=== PATIENT | male | born 1965 | race Caucasian/White ===

== ENCOUNTER 2017-05-17 06:59 | Inpatient (IN) | payer BC, OTHER ==
[2017-05-13 12:32] LABS: APPEARANCE,URINE CLEAR; BILIRUBIN,URINE NEGATIVE (NEGATIVE); GLUCOSE, URINE NEGATIVE (NEGATIVE); KETONES,URINE NEGATIVE (NEGATIVE); LEUKOCYTE ESTERASE,URINE NEGATIVE (NEGATIVE); NITRITE,URINE NEGATIVE (NEGATIVE); PROTEIN,URINE NEGATIVE (NEGATIVE); URINE SPECIFIC GRAVITY 1.002; UROBILINOGEN,URINE NEGATIVE mg/dL (<2.0)
[2017-05-13 12:38] LABS: HEMATOCRIT 38.4 % (37.9-51.0); HEMOGLOBIN 13.1 g/dL (13.5-17.0); HGB HCT DIFFERENCE 0.9; MEAN CORPUSCULAR HGB CONC 34.2 g/dL (32.0-36.0); MEAN CORPUSCULAR VOLUME 79 fl (80-97); RED BLOOD COUNT 4.86 10^6/uL (4.35-5.55); RED CELL DISTRIBUTION WIDTH 14.9 % (11.5-14.0); WHITE BLOOD COUNT 6.7 10^3/uL (4.0-10.5)
[2017-05-13 13:05] LABS: ANION GAP 12 (5-19); BLOOD UREA NITROGEN 9 mg/dL (7-20); CALCIUM 9.8 mg/dL (8.4-10.2); CARBON DIOXIDE 27 mmol/L (22-30); CHLORIDE 99 mmol/L (98-107); CREATININE RESULT 0.78 mg/dL (0.52-1.25); GLUCOSE 92 mg/dL (75-110); POTASSIUM 4.6 mmol/L (3.6-5.0); SODIUM 138.2 mmol/L (137-145)
--- NOTE | 2017-05-13 13:35 | RADIOLOGY REPORT (SQ) ---
EXAM DESCRIPTION: CHEST PA/LATERAL COMPLETED DATE/TIME: 05/13/2017 11:58 am REASON FOR STUDY: PRE OP COMPARISON: None. EXAM PARAMETERS: NUMBER OF VIEWS: two views TECHNIQUE: Digital Frontal and Lateral radiographic views of the chest acquired. RADIATION DOSE: NA LIMITATIONS: none FINDINGS: LUNGS AND PLEURA: No opacities, masses or pneumothorax. No pleural effusion. MEDIASTINUM AND HILAR STRUCTURES: No masses or contour abnormalities. HEART AND VASCULAR STRUCTURES: Heart normal size. No evidence for failure. BONES: No acute findings. HARDWARE: None in the chest. OTHER: No other significant finding. IMPRESSION: NO SIGNIFICANT RADIOGRAPHIC FINDING IN THE CHEST. TECHNICAL DOCUMENTATION: JOB ID: [id number] [employer]- All Rights Reserved
--- NOTE | 2017-05-13 21:25 | EKG REPORT ---
SEVERITY:- NORMAL ECG - SINUS RHYTHM : Confirmed by: Raina Myers 13-May-2017 21:24:10
[~2017-05-17 06:59] MED LIST: BUPIVACAINE INJ/PF LIPOSOME/PF 266 MG/20 ML SDV ONE; IBUPROFEN 800 MG/NS 250 ML IV PRN; LACTATED RINGERS 1000 ML IV PRN; LANSOPRAZOLE 15 MG TAB.RAP.DR PO PRN; OXYCODONE HCL SR 10 MG TABLET PO PRN; THROMBIN (BOVINE) 5000 UNIT EPITAXIS KIT ONE; THROMBIN (BOVINE) TOPICAL 20000 UNIT VIAL ONE; VANCOMYCIN HCL 1,000 MG in DEXTROSE 5%-WATER 250 ML IV PRN
[2017-05-17] MEDS ORDERED: THROMBIN (BOVINE) 5000 UNIT EPITAXIS KIT ONE (07:24)
[2017-05-17] MEDS ORDERED: BUPIVACAINE INJ/PF LIPOSOME/PF 266 MG/20 ML SDV ONE (07:25)
[2017-05-17] MEDS ORDERED: FENTANYL CITRATE INJ/PF 250 MCG/5 ML AMPULE ONE (07:28)
[2017-05-17] MEDS ORDERED: MIDAZOLAM 2 MG/2 ML INJ ONE (07:28)
[2017-05-17] MEDS ORDERED: LIDOCAINE 2% INJ-PF (20 MG/ML) 10 ML AMPUL ONE (07:28)
[2017-05-17] MEDS ORDERED: DEXMEDETOMIDINE INJ 80 MCG/20 ML VIAL IV ONE (07:29)
[2017-05-17] MEDS ORDERED: TRANEXAMIC ACID INJ/PF 1,000 MG/10 ML SDV IV ONE ×3 (07:29→11:30)
[2017-05-17] MEDS ORDERED: EPHEDRINE SULFATE INJ 50 MG/1 ML AMPULE ONE (07:29)
[2017-05-17] MEDS ORDERED: ONDANSETRON HCL INJ/PF 4 MG/2 ML SDV ONE (07:29)
[2017-05-17] MEDS ORDERED: PROPOFOL INJ 200 MG/20 ML VIAL IV ONE (07:29)
[2017-05-17] MEDS ORDERED: CEFAZOLIN INJ 1 GM VIAL ONE (08:19)
[2017-05-17] MEDS ORDERED: PROMETHAZINE HCL INJ 25 MG/1 ML VIAL IV PRN ×2 (09:15)
[2017-05-17] MEDS ORDERED: OXYCODONE-ACETAMINOPHEN 5-325 MG TABLET PO PRN ×2 (09:15)
[2017-05-17] MEDS: THROMBIN (BOVINE) TOPICAL 20000 UNIT VIAL ONE ×2 (09:15→09:41)
[2017-05-17] MEDS ORDERED: DIPHENHYDRAMINE HCL 50 MG/ML VIAL IV PRN ×2 (09:15→10:45)
[2017-05-17] MEDS ORDERED: MEPERIDINE HCL/PF INJ 25 MG/1 ML DISP.SYRIN IV PRN (09:15)
[2017-05-17] MEDS ORDERED: MORPHINE SULFATE 10 MG/ML INJ IV PRN ×5 (09:15→16:54)
[2017-05-17] MEDS ORDERED: ONDANSETRON HCL INJ/PF 4 MG/2 ML SDV IV PRN ×2 (09:15→10:45)
[2017-05-17] MEDS ORDERED: FENTANYL CITRATE INJ/PF 100 MCG/2 ML AMPUL IV PRN ×3 (09:15)
--- NOTE | 2017-05-17 10:44 | Operative Report ---
Operative Report DATE OF SURGERY: 05/17/17 PREOPERATIVE DIAGNOSIS: Bilateral knee osteoarthritis OPERATION: Bilateral knee arthroplasty SURGEON: KEYANA DIAZ [employer] REPRESENTATIVE: RONALDO CHOI ANESTHESIA: Spinal TISSUE REMOVED OR ALTERED: Bone 2 to pathology ESTIMATED BLOOD LOSS: 100 PROCEDURE: Implants used: Femur: Right side Sindi triathlon #7 CR femur, left side #8 Tibia: Right side 6, left side 7 Tibial liner: 9 mm CS insert Patella: 38 mm oval patella Procedure with the patient supine on the operating table the bilateral limbs are prepped and draped in a sterile fashion. The right lower extremity was elevated for exsanguination and the tourniquet inflated to 280 torr. A standard midline median parapatellar approach the knee is taken. Access is gained to the femoral canal through the intercondylar notch. Intramedullary alignment instrumentation used to resect 10 mm of distal femur in 5 of valgus. Sizing guide indicated a size 7 femur. Appropriate cutting jig is then used to fashion anterior posterior and chamfer cuts. Is a slight notching of the anterior femoral cortex. A trial reduction femurs performed and this is judged to be adequate. Attention was next turned to the tibia. Using an extra medullary alignment system 9 millimeters was resected off the lateral tibial plateau. This is sized to a size 6 tibia. A trial reduction was now performed with a 7 femur and a 6 tibia using a 9 millimeters spacer. It is full extension and central patellofemoral tracking. The articular surface the patella was next resected using an oscillating saw. All trial implants were removed. Polymethylmethacrylate is mixed and used to cement the above implants in place. On adequate curing the cement excess cement was removed the tourniquet was deflated hemostasis obtained the wound is then closed in layers using interrupted Vicryl followed by liseth. At this point an identical procedure was performed on the left lower extremity. However the implants were upsized to a 7 tibia, 8 femur, 38 mm oval patella to avoid notching of the left lower extremity. The wound was closed in identical fashion. A sterile compressive dressing was applied and the patient returned to recovery room in satisfactory condition.
[2017-05-17] MEDS ORDERED: RINGERS SOLUTION,LACTATED 1,000 ML IV PRN (10:45)
[2017-05-17] MEDS ORDERED: ACETAMINOPHEN 325 MG TABLET PO PRN (10:45)
[2017-05-17] MEDS ORDERED: BUTALBITAL PO PRN (10:45)
[2017-05-17] MEDS ORDERED: CAFFEINE PO PRN (10:45)
[2017-05-17] MEDS ORDERED: DIAZEPAM 5 MG TABLET PO PRN (10:45)
[2017-05-17] MEDS ORDERED: [UNRECOGNIZED DRUG - OTHER] PO PRN (10:45)
[2017-05-17] MEDS ORDERED: [UNRECOGNIZED DRUG - OTHER] PO PRN (10:45)
[2017-05-17] MEDS ORDERED: ASPIRIN PO PRN (10:45)
[2017-05-17] MEDS ORDERED: ZOLPIDEM TARTRATE 5 MG TABLET PO PRN (10:45)
[2017-05-17] MEDS ORDERED: MAG HYDROX/AL HYDROX/SIMETH SUSP 30 ML UDCUP PO PRN (10:45)
[2017-05-17] MEDS ORDERED: ONDANSETRON 4 MG TAB.RAPDIS PO PRN (10:45)
--- NOTE | 2017-05-17 12:03 | RADIOLOGY REPORT (SQ) ---
EXAM DESCRIPTION: KNEE LEFT 2 VIEWS COMPLETED DATE/TIME: 05/17/2017 11:50 am REASON FOR STUDY: Post OP -Long Cassette in PACU M17.0 BILATERAL PRIMARY OSTEOARTHRITIS OF KNEE COMPARISON: None. NUMBER OF VIEWS: Two views left knee. TECHNIQUE: Digital radiographic images of the left knee post-procedure. LIMITATIONS: None. FINDINGS: BONES: No worrisome or unexpected findings post-procedure. DEVICE: Left total knee replacement with patellar resurfacing. Good alignment SOFT TISSUES: No worrisome findings. Expected postoperative soft tissue changes. IMPRESSION: SATISFACTORY POSTOPERATIVE LEFT KNEE. TECHNICAL DOCUMENTATION: JOB ID: [id number] [employer]- All Rights Reserved
--- NOTE | 2017-05-17 12:05 | RADIOLOGY REPORT (SQ) ---
EXAM DESCRIPTION: KNEE RIGHT 2 VIEWS COMPLETED DATE/TIME: 05/17/2017 11:50 am REASON FOR STUDY: Post OP -Long Cassette in PACU M17.0 BILATERAL PRIMARY OSTEOARTHRITIS OF KNEE COMPARISON: None. NUMBER OF VIEWS: Two views TECHNIQUE: Digital radiographic images of the right knee post-procedure. LIMITATIONS: None. FINDINGS: BONES: No worrisome or unexpected findings post-procedure. DEVICE: Right total knee replacement with patellar resurfacing, good alignment. A SOFT TISSUES: No worrisome findings. Expected postoperative soft tissue changes. IMPRESSION: SATISFACTORY POSTOPERATIVE RIGHT KNEE. TECHNICAL DOCUMENTATION: JOB ID: [id number] [employer]- All Rights Reserved
[2017-05-17] MEDS ORDERED: GLYCOPYRROLATE INJ 0.4 MG/2 ML VIAL ONE (12:50)
[2017-05-17] MEDS: OXYCODONE HCL IR 5 MG TABLET PO PRN ×2 (13:47→22:28)
[2017-05-17] MEDS ORDERED: (PENDING PHARMACY ID) (Butalb/Acetaminophen/Caffeine [Butalb-Acetamin-Caff 50-300-40] 1 CA PO PRN (14:14)
[2017-05-17] MEDS ORDERED: BUTALB/ACETAMINOPHEN/CAFFEINE 1 TAB EACH PO PRN (14:43)
[2017-05-17] MEDS: MORPHINE SULFATE 10 MG/ML INJ IM PRN ×2 (15:42→23:23)
[2017-05-17] MEDS: IBUPROFEN 800 MG in NORMAL SALINE 250 ML IV SCH (17:32)
[2017-05-17] MEDS: SENNOSIDES/DOCUSATE 8.6-50 MG 1 EACH TABLET PO SCH (17:33)
[2017-05-17] MEDS: RIVAROXABAN 10 MG TABLET PO SCH (21:29)
[2017-05-17] MEDS: ATORVASTATIN CALCIUM 20 MG TABLET PO SCH (21:30)
[2017-05-17] MEDS: DIAZEPAM 5 MG TABLET PO PRN (21:34)
[2017-05-17] MEDS: CYCLOBENZAPRINE HCL 10 MG TABLET PO PRN (21:34)
[2017-05-17] MEDS ORDERED: OXYCODONE HCL SR 10 MG TABLET PO SCH (22:00)
[2017-05-17] MEDS ORDERED: VANCOMYCIN HCL 1,000 MG in DEXTROSE 5%-WATER 250 ML IV ONE (23:00)
[2017-05-18] MEDS: IBUPROFEN 800 MG in NORMAL SALINE 250 ML IV SCH ×4 (01:03→23:29)
[2017-05-18] MEDS: LANSOPRAZOLE 30 MG TAB.RAP.DR PO SCH (05:11)
[2017-05-18] MEDS: OXYCODONE HCL IR 5 MG TABLET PO PRN ×2 (05:11→17:16)
[2017-05-18] MEDS: MORPHINE SULFATE 10 MG/ML INJ IM PRN ×4 (05:16→09:07)
[2017-05-18 05:27] LABS: HEMATOCRIT 32.3 % (37.9-51.0); HEMOGLOBIN 11.1 g/dL (13.5-17.0); MEAN CORPUSCULAR HEMOGLOBIN 27.1 pg (27.0-33.4); MEAN CORPUSCULAR HGB CONC 34.4 g/dL (32.0-36.0); MEAN CORPUSCULAR VOLUME 79 fl (80-97); RED CELL DISTRIBUTION WIDTH 14.7 % (11.5-14.0); WHITE BLOOD COUNT 10.6 10^3/uL (4.0-10.5)
[2017-05-18 05:49] LABS: ANION GAP 10 (5-19); BLOOD UREA NITROGEN 7 mg/dL (7-20); CALCIUM 8.7 mg/dL (8.4-10.2); CARBON DIOXIDE 27 mmol/L (22-30); CHLORIDE 96 mmol/L (98-107); CREATININE RESULT 0.78 mg/dL (0.52-1.25); GLUCOSE 147 mg/dL (75-110); POTASSIUM 4.7 mmol/L (3.6-5.0)
--- NOTE | 2017-05-18 07:07 | PDOC PROGRESS REPORT ---
Subjective Progress Note for:: 05/18/17 Subjective:: Patient complains of pain in right greater than left knees Physical Exam Vital Signs: Temp Pulse Resp BP Pulse Ox 36.8 C 112 H 16 141/74 H 98 05/18/17 03:28 05/18/17 03:28 05/18/17 03:28 05/18/17 03:28 05/18/17 03:28 Intake & Output 05/17/17 05/18/17 05/19/17 06:59 06:59 06:59 Intake Total 15666 Output Total 5850 Balance 4927 Weight 115.2 kg General appearance: PRESENT: mild distress Head exam: PRESENT: normocephalic Eye exam: PRESENT: EOMI Respiratory exam: PRESENT: unlabored Cardiovascular exam: PRESENT: RRR Pulses: PRESENT: +1 pedal pulses bilateral Vascular exam: PRESENT: normal capillary refill GI/Abdominal exam: PRESENT: soft Rectal exam: PRESENT: deferred Extremities exam: PRESENT: other - Bilateral lower extremity dressings clean dry and intact. There is a mild flexion contracture present on the right. The patient is instructed to use a pillow underneath the right heel and allow gravity to extend the knee. Neurological exam: PRESENT: alert, awake, oriented to person, oriented to place , oriented to time, oriented to situation. ABSENT: motor sensory deficit Psychiatric exam: PRESENT: appropriate affect, normal mood. ABSENT: homicidal ideation, suicidal ideation Skin exam: PRESENT: dry, intact, warm. ABSENT: cyanosis, rash Results Laboratory Results: 05/18/17 05:06 05/18/17 05:06 05/18/17 05/18/17 05:06 05:06 WBC 10.6 H RBC 4.10 L Hgb 11.1 L Hct 32.3 L MCV 79 L MCH 27.1 MCHC 34.4 RDW 14.7 H Plt Count 251 Sodium 133.0 L Potassium 4.7 Chloride 96 L Carbon Dioxide 27 Anion Gap 10 BUN 7 Creatinine 0.78 Est GFR ( Amer) > 60 Est GFR (Non-Af Amer) > 60 Glucose 147 H Calcium 8.7 Impressions: Chest X-Ray 05/13/17 11:36 IMPRESSION: NO SIGNIFICANT RADIOGRAPHIC FINDING IN THE CHEST. Knee X-Ray 05/17/17 10:46 IMPRESSION: SATISFACTORY POSTOPERATIVE RIGHT KNEE. Status: Imported from PACS Assessment & Plan - Diagnosis (1) Degenerative arthritis of knee, bilateral Is this a current diagnosis for this admission?: Yes Plan: 52-year-old white male postop day 1 status post bilateral simultaneous knee arthroplasty. Overall he is doing quite well he ambulated 100 feet with physical therapy on the day of surgery. Plan for dressing change tomorrow with discharge home with home health nursing, home health physical therapy, wheeled walker, bedside commode. - Time Time Spent with patient: 15-24 minutes Anticipated discharge: Home with Homehealth Within: within 24 hours
[2017-05-18] MEDS: SENNOSIDES/DOCUSATE 8.6-50 MG 1 EACH TABLET PO SCH ×2 (09:08→17:03)
[2017-05-18] MEDS ORDERED: LISINOPRIL 5 MG TABLET PO SCH (10:00)
[2017-05-18] MEDS ORDERED: (PENDING PHARMACY ID) (Lisinopril [Prinivil 2.5 Mg Tablet] 2.5 MG) PO SCH (10:00)
[2017-05-18] MEDS ORDERED: CHOLECALCIFEROL (D3) 1,000 UNIT TABLET PO SCH (10:00)
[2017-05-18] MEDS ORDERED: METOPROLOL SUCCINATE 25 MG TAB.SR.24H PO SCH (10:00)
[2017-05-18] MEDS ORDERED: PRENATAL VITAMIN W-O CA NO5/FE FUMARATE/FA CAPSULE PO SCH (10:00)
[2017-05-18] MEDS ORDERED: (PENDING PHARMACY ID) (Cholecalciferol (Vitamin D3) [Vitamin D3 2000 Unit Tablet] 2,000 UN PO SCH (10:00)
[2017-05-18] MEDS: OXYCODONE HCL SR 40 MG TABLET PO SCH ×2 (10:11→21:19)
[2017-05-18] MEDS: ATORVASTATIN CALCIUM 20 MG TABLET PO SCH (21:18)
[2017-05-18] MEDS: RIVAROXABAN 10 MG TABLET PO SCH (21:19)
[2017-05-18] MEDS: DIAZEPAM 5 MG TABLET PO PRN (21:25)
[2017-05-18] MEDS: CYCLOBENZAPRINE HCL 10 MG TABLET PO PRN (21:25)
[2017-05-19] MEDS: OXYCODONE HCL IR 5 MG TABLET PO PRN ×2 (00:34→06:26)
[2017-05-19 06:25] LABS: HEMATOCRIT 28.4 % (37.9-51.0); HEMOGLOBIN 9.9 g/dL (13.5-17.0); HGB HCT DIFFERENCE 1.3; MEAN CORPUSCULAR HEMOGLOBIN 27.6 pg (27.0-33.4); MEAN CORPUSCULAR HGB CONC 34.8 g/dL (32.0-36.0); MEAN CORPUSCULAR VOLUME 79 fl (80-97); RED BLOOD COUNT 3.58 10^6/uL (4.35-5.55); RED CELL DISTRIBUTION WIDTH 14.6 % (11.5-14.0); WHITE BLOOD COUNT 8.9 10^3/uL (4.0-10.5)
[2017-05-19] MEDS: LANSOPRAZOLE 30 MG TAB.RAP.DR PO SCH (06:26)
--- NOTE | 2017-05-19 07:39 | PDOC DISCHARGE SUMMARY ---
General - Admit/Disc Date/PCP Admission Date/Primary Care Provider: 05/17/17 06:59 Discharge Date: 05/19/17 - Discharge Diagnosis (1) Degenerative arthritis of knee, bilateral Is this a current diagnosis for this admission?: Yes - Additional Information Resuscitation Status: Full Code Discharge Diet: As Tolerated, Regular Discharge Activity: Balance Activity w/Rest, No Driving, No tub bath Home Medications: Atorvastatin Calcium 20 mg PO DAILY 05/17/17 Butalb/Acetaminophen/Caffeine [Kdhnnj-Cjvxddts-Tafy 50-300-40] 1 cap PO Q4HP PRN 05/17/17 Cyclobenzaprine HCl [Flexeril 10 mg Tablet] 10 mg PO Q8HP PRN 05/17/17 Diazepam [Valium 5 mg Tablet] 5 mg PO DAILYP PRN 05/17/17 Ergocalciferol (Vitamin D2) [Vitamin D2] 1 tab PO DAILY 05/17/17 Lisinopril [Zestril] 2.5 mg PO DAILY 05/17/17 Metoprolol Succinate [Toprol Xl] 25 mg PO DAILY 05/17/17 Omeprazole 20 mg PO DAILY 05/17/17 Tramadol HCl [Ultram 50 mg Tablet] 100 mg PO Q6HP PRN 05/17/17 Oxycodone HCl [Oxy-Ir 5 mg Tablet] 5 mg PO Q6HP PRN tablet 05/19/17 Rivaroxaban [Xarelto 10 mg Tablet] 10 mg PO QHS tablet 05/19/17 History of Present Illness History of Present Illness: VIKY SY is a 52 year old male progressive bilateral knee pain and functional disability secondary osteoarthritis. Patient is admitted for bilateral knee arthroplasty. Hospital Course Hospital Course: Patient is admitted through the operating where he undergoes bilateral simultaneous knee arthroplasty. He tolerates the procedure without complication. Is returned to the floor in satisfactory condition. Makes excellent progress with physical therapy ablating 100 feet on the day of surgery. Dressings are taken down on postop day 2. Picot dressings are clean dry and intact. There is minimal pedal edema. Physical Exam Vital Signs: Temp Pulse Resp BP Pulse Ox 36.8 C 104 H 20 124/63 95 05/18/17 23:55 05/19/17 00:39 05/18/17 23:55 05/18/17 23:55 05/18/17 23:55 Intake & Output 05/18/17 05/19/17 05/20/17 06:59 06:59 06:59 Intake Total 31502 1660 Output Total 5850 2650 Balance 4927 -990 Weight 115.2 kg General appearance: PRESENT: mild distress Head exam: PRESENT: normocephalic Eye exam: PRESENT: EOMI Respiratory exam: PRESENT: unlabored Cardiovascular exam: PRESENT: RRR Pulses: PRESENT: +1 pedal pulses bilateral Vascular exam: PRESENT: normal capillary refill GI/Abdominal exam: PRESENT: soft Rectal exam: PRESENT: deferred Extremities exam: PRESENT: other - Bilateral picot dressing is clean dry and intact. There is minor pedal edema. Distal neurovascular examination is intact. Neurological exam: PRESENT: alert, awake, oriented to person, oriented to place , oriented to time, oriented to situation. ABSENT: motor sensory deficit Psychiatric exam: PRESENT: appropriate affect, normal mood. ABSENT: homicidal ideation, suicidal ideation Skin exam: PRESENT: dry, intact, warm. ABSENT: cyanosis, rash Results Laboratory Results: 05/19/17 05:40 05/18/17 05:06 05/19/17 05:40 WBC 8.9 RBC 3.58 L Hgb 9.9 L Hct 28.4 L MCV 79 L MCH 27.6 MCHC 34.8 RDW 14.6 H Plt Count 237 Impressions: Chest X-Ray 05/13/17 11:36 IMPRESSION: NO SIGNIFICANT RADIOGRAPHIC FINDING IN THE CHEST. Knee X-Ray 05/17/17 10:46 IMPRESSION: SATISFACTORY POSTOPERATIVE RIGHT KNEE. Status: Imported from PACS Plan Discharge Plan: She will be discharged home health nursing, home health physical therapy, will walker, bedside commode. Visiting nurse service to change bilateral knee picot dressings on postop day 7 replaced with OpSite. Follow-up with Dr. Arguelles and [facility] for surgery in 2 weeks for staple removal. Time Spent: Less than 30 Minutes
[2017-05-19 08:23] VITALS: BP 115/59
[2017-05-19] MEDS: IBUPROFEN 800 MG in NORMAL SALINE 250 ML IV SCH (10:06)
== END 2017-05-19 10:34 | disposition home health service (06) | DRG 462 ==
LOC: INOR 06:59 → 4S 13:07
PROVIDERS: ADMIT Orthopaedic Surgery; ATTEND Orthopaedic Surgery
PROC: 0SRC0J9 Replacement of Right Knee Joint with Synthetic Substitute, Cemented, Open Approach (ICD-10-PCS; 2017-05-17)
PROC: 0SRD0J9 Replacement of Left Knee Joint with Synthetic Substitute, Cemented, Open Approach (ICD-10-PCS; principal; 2017-05-17 09:00)
DX: M17.0 Bilateral primary osteoarthritis of knee (principal); K21.9 Gastro-esophageal reflux disease without esophagitis; I10 Essential (primary) hypertension; F41.9 Anxiety disorder, unspecified; Z79.899 Other long term (current) drug therapy; Z95.5 Presence of coronary angioplasty implant and graft; Z82.61 Family history of arthritis; Z82.49 Family history of ischemic heart disease and other diseases of the circulatory system; Z80.9 Family history of malignant neoplasm, unspecified
CPT/HCPCS: 01402; 36415; 71020; 80048; 81001; 85027; 88305; 88311; 93005; 93010; 94799; C2625; C9290; J0690; J1200; J1741; J2250; J2270; J2405; J2704; J3010; J3370; J3490; J7050; J7060